=== PATIENT | male | born 1980 | race Two or more races ===

== ENCOUNTER 2022-07-17 23:03 | Inpatient (IN) | payer MEDICAID ==
[~2022-07-17] VITALS: Ht 157.5 cm; Wt 107.5 kg
--- NOTE | 2022-07-17 23:25 | NUR ---
[id number]. BILATERAL LEG PAIN & SWELLING X YESTERDAY PAIN IS MORE ON RIGHT. PT PRESENTS WITH ASCITES. AXO3 PRIMARILY CUBAN SPEAKING, UNDERSTANDS LITTLE FRENCH.
--- NOTE | 2022-07-17 23:39 | NUR ---
IRVIN TAYLOR AT BEDSIDE
[2022-07-18] VITALS (9 sets, daily range): BP systolic 98–130; BP diastolic 47–70
[2022-07-18] MEDS ORDERED: KETOROLAC TROMETHAMINE INJ 30 MG/ML VIAL IV ONE
--- NOTE | 2022-07-18 00:05 | NUR ---
IV STARTED 20G R AC
[2022-07-18] MEDS ORDERED: KETOROLAC TROMETHAMINE 15 MG/ML VIAL ONE (00:06)
--- NOTE | 2022-07-18 00:22 | NUR ---
X-RAY AT BEDSIDE
[2022-07-18 00:35] LABS: BASOPHILS % (AUTO) 0.9 % (0.0-2.0); EOSINOPHILS % (AUTO) 0.1 % (0.0-6.0); HEMATOCRIT 26 % (39-51); HEMOGLOBIN 8.2 g/dL (13.5-17.5); LYMPHOCYTES # (AUTO) 0.3 K/uL (0.8-4.8); LYMPHOCYTES % (AUTO) 5.2 % (20.0-44.0); MEAN CORPUSCULAR HGB CONC 32 g/dl (31.0-36.0); MEAN CORPUSCULAR VOLUME 87 fL (80-96); MONOCYTES # (AUTO) 0.5 K/uL (0.1-1.30); MONOCYTES % (AUTO) 9.3 % (2.0-12.0); NEUTROPHILS # (AUTO) 4.4 K/uL (1.8-8.9); NEUTROPHILS % (AUTO) 84.5 % (43.0-81.0); RED BLOOD CELL COUNT(AUTO) 2.96 MIL/uL (4.5-6.0); WHITE BLOOD COUNT (AUTO) 5.2 K/uL (4.3-11.0)
[2022-07-18 00:36] LABS: PLATELET COUNT (AUTO) 19 K/uL (150-450)
--- NOTE | 2022-07-18 00:37 | NUR ---
RECEIVED CRITICAL RESULT FOR PT PLATELET 19. MADE AWARE
--- NOTE | 2022-07-18 00:45 | NUR ---
COVID ANTIGEN COLLECTED AND SENT TO LAB
[2022-07-18 00:51] LABS: SERUM AMMONIA 64 umol/L (11-32)
[2022-07-18 00:58] LABS: ALANINE AMINOTRANSFERASE 33 U/L (12-78); ALBUMIN 1.9 g/dL (3.4-5.0); ALKALINE PHOSPHATASE 166 U/L (46-116); ASPARTATE AMINOTRANSFERASE 98 U/L (15-37); BILIRUBIN,DIRECT 6.6 mg/dL (0.0-0.2); BILIRUBIN,TOTAL 11.5 mg/dL (0.2-1.0); CALCIUM, SERUM 7.5 mg/dL (8.5-10.1); CARBON DIOXIDE 22 mmol/L (21-32); CHLORIDE 104 mmol/L (98-107); CREATININE 0.6 mg/dL (0.6-1.3); GLUCOSE 103 mg/dL (74-106); POTASSIUM 3.6 mmol/L (3.5-5.1); SODIUM SERUM 136 mmol/L (136-145); TOTAL PROTEIN, SERUM 7.4 g/dL (6.4-8.2); UREA NITROGEN, BLOOD 3 mg/dL (7-18)
[2022-07-18 01:01] LABS: ALCOHOL, BLOOD 4 mg/dL (0-0)
--- NOTE | 2022-07-18 01:35 | NUR ---
Mary Kay mancera in [facility] - 07/18/22 at 0140 by LANCE [phone]
[2022-07-18] MEDS ORDERED: LORAZEPAM INJ 2 MG/ML VIAL IV ONE (02:00)
[2022-07-18] MEDS ORDERED: Z GUARD REMEDY 4 OZ OINT TP PRN (02:30)
[2022-07-18] MEDS ORDERED: LORAZEPAM INJ 2 MG/ML VIAL IV PRN (02:30)
[2022-07-18] MEDS ORDERED: ONDANSETRON HCL/PF 4 MG/2 ML VIAL IVP PRN (02:30)
[2022-07-18] MEDS ORDERED: ZOLPIDEM TARTRATE 5 MG TABLET PO PRN (02:30)
[2022-07-18] MEDS ORDERED: MAG HYDROX/AL HYDROX/SIMETH 30 ML UDC PO PRN (02:30)
[2022-07-18] MEDS ORDERED: MAGNESIUM HYDROXIDE 30 ML UDC PO PRN (02:30)
--- NOTE | 2022-07-18 03:37 | NUR ---
REPORT GIVEN TO STANLEY VALENCIA ON MS 3W
--- NOTE | 2022-07-18 03:42 | NUR ---
PT TRANSPORTED TO [facility]
--- NOTE | 2022-07-18 04:15 | NUR ---
UMBRELLA FINISHER NOTE ADMITTED THIS PATIENT FROM ER [facility] WITH DX OF THROMBOCYTOPENIA AND ALCOHOL WITHDRAWAL. PATIENT IS AWAKE, ALERT AND ORIENTED X3. BRITISH SPEAKING UNDERSTAND SOME HUNGARIAN. ORIENTED TO STAFF, ROOM AND UNIT. VS TAKEN; AFEBRILE. ON ROOM AIR; TOLERATING WELL. NOT IN ANY FORM OF RESPIRATORY OR CARDIAC DISTRESS NOTED AT THIS TIME. NO C/O PAIN OR DISCOMFORT. WITH IV ACCESS ON RIGHT AC 20g; PATENT, INTACT AND SALINE LOCKED. BODY AND SKIN ASSESSMENT DONE. WITH LEFT ARM ECCHYMOSIS AND BILATERAL LOWER EXTREMITY PETECHIAE. PICTURES TAKEN AND PLACED TO CHART. INVENTORY OF PERSONAL BELONGINGS DONE. ABLE TO MAKE NEEDS KNOWN. SAFETY PRECAUTIONS IMPLEMENTED: CALL LIGHT AND TABLE WITHIN REACH, SIDE RAILS UP X 2, BED IN LOWEST LOCKED POSITION. WILL CONTINUE TO MONITOR THROUGHOUT SHIFT.
--- NOTE | 2022-07-18 04:27 | NUR ---
RN NOTE CALLED BLOOD BANK TO FOLLOW UP PLATELET. PER LEEROY WHITMAN, BLOOD BANK DON'T STORE PLATELET. IT NEEDS TO BE ORDERED FROM [facility] AND WILL TAKE 4-6 HRS TO BE DELIVERED TO THE BLOOD BANK. HOSPITALIST CHRIS IRVIN MADE AWARE AND REPLIED OK.
[2022-07-18] MEDS: LACTULOSE 10 G/15 ML UDC (PYXIS) PO SCH ×3 (06:14→20:03)
--- NOTE | 2022-07-18 07:10 | NUR ---
RN CLOSING NOTE PATIENT IN BED; AWAKE, A/O X3. STABLE ON ROOM AIR. IN NO ACUTE DISTRESS. NO C/O PAIN OR DISCOMFORT. WITH IV ACCESS ON RIGHT AC 20g; PATENT, INTACT AND SALINE LOCKED. ALL NEEDS ATTENDED. SAFETY PRECAUTIONS IN PLACE: CALL LIGHT AND TABLE WITHIN REACH, SIDE RAILS UP X 2, BED IN LOWEST LOCKED POSITION. ENDORSED TO MORNING SHIFT FOR CATERINA.
[2022-07-18 07:40] LABS: BASOPHILS # (AUTO) 0.1 K/uL (0.0-0.2); BASOPHILS % (AUTO) 0.9 % (0.0-2.0); EOSINOPHILS % (AUTO) 0.1 % (0.0-6.0); HEMATOCRIT 24 % (39-51); HEMOGLOBIN 7.5 g/dL (13.5-17.5); LYMPHOCYTES # (AUTO) 0.6 K/uL (0.8-4.8); LYMPHOCYTES % (AUTO) 10.7 % (20.0-44.0); MEAN CORPUSCULAR HGB CONC 32 g/dl (31.0-36.0); MEAN CORPUSCULAR VOLUME 88 fL (80-96); MONOCYTES # (AUTO) 0.7 K/uL (0.1-1.30); MONOCYTES % (AUTO) 11.4 % (2.0-12.0); NEUTROPHILS # (AUTO) 4.4 K/uL (1.8-8.9); NEUTROPHILS % (AUTO) 76.9 % (43.0-81.0); RED BLOOD CELL COUNT(AUTO) 2.67 MIL/uL (4.5-6.0); WHITE BLOOD COUNT (AUTO) 5.8 K/uL (4.3-11.0)
[2022-07-18 07:46] LABS: PLATELET COUNT (AUTO) 26 K/uL (150-450)
--- NOTE | 2022-07-18 08:00 | NUR ---
RN OPENING NOTE RECEIVED PATIENT IN BED AO x 3 INDONESIAN SPEAKING, ABLE TO RESPONDS PHYSICAL STIMULI. RESPIRATORY EVEN AND UNLABORED IN ROOM AIR. IN NO ACUTE RESPIRATORY DISTRESS OBSERVED. SKIN IS WARM TO TOUCH, KEEP CLEAN/DRY. KEPT ELEVATED HOB FOR ASPIRATION PRECAUTION AND FOR ENSURE AIRWAY, ALSO LOWEST BED POSITIONED. BED ALARM IS ON AT ALL THE TIME FOR SAFETY. CALL LIGHT WITHIN REACH, WILL CONTINUE TO MONITOR. NOTICED PLT LEVEL IS 26 THIS MORNING REPORTED BY LEEROY FROM LAB. THE PLT HAS BEEN ORDERED PREVIOUSLY AND A WAITING A PLT IS READY FROM THE BLOOD BANK.
[2022-07-18] MEDS: THIAMINE HCL 100 MG TABLET PO SCH (09:06)
[2022-07-18] MEDS: FOLIC ACID 1 MG TABLET PO SCH (09:06)
[2022-07-18] MEDS: PANTOPRAZOLE 40 MG VIAL IV SCH (09:06)
[2022-07-18 09:37] LABS: ALBUMIN 1.7 g/dL (3.4-5.0); BILIRUBIN,TOTAL 11.8 mg/dL (0.2-1.0); CALCIUM, SERUM 7.4 mg/dL (8.5-10.1); CREATININE 0.6 mg/dL (0.6-1.3); MAGNESIUM 1.6 mg/dL (1.8-2.4); PHOSPHORUS 2.5 mg/dL (2.5-4.9); POTASSIUM 3.7 mmol/L (3.5-5.1); TOTAL PROTEIN, SERUM 6.8 g/dL (6.4-8.2)
--- NOTE | 2022-07-18 18:00 | NUR ---
RN CLOSING NOTE PATIENT RESTING IN BED. IN NO ACUTE DISTRESS OBSERVED. S/P PLT TRANSFUSION AND NO REACTION; FEVER, SKIN RASH OBSERVED. RESPIRATORY EVEN AND UNLABORED IN ROOM AIR. SKIN IS WARM TO TOUCH KEEP CLEAN/DRY. KEPT ELEVATED HOB FOR ENSURE AIRWAY/ASPIRATION PRECAUTION, AND LOWEST BED POSITION. NO ALCOHOL WITHDRAW SYMPTOM OBSERVED DURING DAY SHIFT. PATIENT REFUSED WOUND CHECK. BED ALARM IS ON AT ALL THE TIME FOR SAFETY. CALL LIGHT WITHIN REACH, WILL ENDORSE JUMP IRON MACHINE PRESSER.
--- NOTE | 2022-07-18 19:30 | NUR ---
MS RN OPENING NOTES - RECEIVED PATIENT SLEEPING, EASY TO AROUSE. A/O X3, BOTSWANAN SPEAKING BUT UNDERSTANDS ARMENIAN. BREATHING EVEN AND NON-LABORED ON ROOM AIR. NOT IN APPARENT DISTRESS. C/O MILD RIGHT LOWER EXTREMITY PAIN. HAS RIGHT ANTECUBITAL IV ACCESS #20G WITH NS RUNNING AT 150 ML/HR, FINISHING UP HIS PLATELET TRANSFUSION. NO S/S OF INFILTRATION NOTED. ON BED REST AND NEEDS MINIMAL ASSIST WITH ADLS. SAFETY PRECAUTIONS IN PLACE: BED LOCKED AND IN LOWEST POSITION, SIDE RAILS UP X2, CALL LIGHT WITHIN REACH. WILL CONTINUE PLAN OF CARE.
[2022-07-18] MEDS: ACETAMINOPHEN 325 MG TABLET PO PRN (19:58)
--- NOTE | 2022-07-18 20:00 | NUR ---
GAVE PRN TYLENOL 650MG FOR RIGHT THIGH PAIN. WILL CONTINUE TO MONITOR.
[2022-07-18] MEDS: CEPHALEXIN MONOHYDRATE 500 MG CAPSULE PO SCH (20:04)
[2022-07-19] VITALS (9 sets, daily range): BP systolic 107–136; BP diastolic 55–75
[2022-07-19 01:16] LABS: BAND % (MANUAL) 2 % (0.0-5.0); LYMPHOCYTES % (MANUAL) 6 % (16-48); MONOCYTES % (MANUAL) 9 % (0-11.0); NEUTROPHILS % (MANUAL) 81 (42-76)
[2022-07-19 01:17] LABS: EOSINOPHILS % (MANUAL) 2 % (0-4)
[2022-07-19 01:18] LABS: BAND % (MANUAL) 6 % (0.0-5.0); BASOPHILS % (MANUAL) 0 % (0.0-2.0); EOSINOPHILS % (MANUAL) 2 % (0-4); LYMPHOCYTES % (MANUAL) 9 % (16-48); MONOCYTES % (MANUAL) 12 % (0-11.0); NEUTROPHILS % (MANUAL) 71 (42-76)
[2022-07-19] MEDS: LACTULOSE 10 G/15 ML UDC (PYXIS) PO SCH ×3 (05:09→20:27)
[2022-07-19 06:35] LABS: BASOPHILS # (AUTO) 0.1 K/uL (0.0-0.2); BASOPHILS % (AUTO) 1.1 % (0.0-2.0); EOSINOPHILS % (AUTO) 2.2 % (0.0-6.0); HEMATOCRIT 21 % (39-51); LYMPHOCYTES # (AUTO) 0.9 K/uL (0.8-4.8); LYMPHOCYTES % (AUTO) 16.2 % (20.0-44.0); MEAN CORPUSCULAR HGB CONC 32 g/dl (31.0-36.0); MEAN CORPUSCULAR VOLUME 90 fL (80-96); MONOCYTES # (AUTO) 0.9 K/uL (0.1-1.30); NEUTROPHILS # (AUTO) 3.8 K/uL (1.8-8.9); NEUTROPHILS % (AUTO) 65.5 % (43.0-81.0); RED BLOOD CELL COUNT(AUTO) 2.33 MIL/uL (4.5-6.0); WHITE BLOOD COUNT (AUTO) 5.9 K/uL (4.3-11.0)
[2022-07-19 06:40] LABS: ALBUMIN 1.6 g/dL (3.4-5.0); BILIRUBIN,DIRECT 6.7 mg/dL (0.0-0.2); CALCIUM, SERUM 7.4 mg/dL (8.5-10.1); CREATININE 0.7 mg/dL (0.6-1.3); MAGNESIUM 1.8 mg/dL (1.8-2.4); PHOSPHORUS 2.5 mg/dL (2.5-4.9); POTASSIUM 3.4 mmol/L (3.5-5.1); TOTAL PROTEIN, SERUM 6.2 g/dL (6.4-8.2)
[2022-07-19 06:42] LABS: HEMOGLOBIN 6.6 g/dL (13.5-17.5); PLATELET COUNT (AUTO) 45 K/uL (150-450)
--- NOTE | 2022-07-19 06:45 | NUR ---
RECEIVED CALL FROM LAB: CRITICAL VALUE HGB 6.6 AND PLATELET 45. NOTIFIED HOSPITALIST AND ORDERED TO INFUSE 1 UNIT PRBC. NOTED AND CARRIED OUT.
--- NOTE | 2022-07-19 06:57 | NUR ---
MS RN CLOSING NOTES - PATIENT RESTING IN BED, ABLE TO VERBALIZE NEEDS. NO CARDIAC OR RESPIRATORY DISTRESS. DENIES PAIN AT THIS TIME. AFEBRILE. NO ACTIVE BLEEDING NOTED. RIGHT ANTECUBITAL IV ACCESS INTACT, PATENT AND FLUSHING. NON-PITTING EDEMA ON BILATERAL LOWER EXTREMITY NOTED. ALL DUE MEDS GIVEN AND NEEDS ATTENDED. PAIN MANAGEMENT ORDERED. PERINEAL CARE RENDERED. SAFETY PRECAUTIONS MAINTAINED. WILL ENDORSE TO NEXT SHIFT FOR CATERINA.
--- NOTE | 2022-07-19 07:46 | NUR ---
N OPENING NOTE THE PATIENT RECIEVED IN BED AO x 3 CZECH SPEAKING, ABLE TO RESPONDS PHYSICAL STIMULI. RESPIRATORY EVEN AND UNLABORED IN ROOM AIR. IN NO ACUTE RESPIRATORY DISTRESS OBSERVED. SKIN IS WARM TO TOUCH, KEEP CLEAN/DRY. KEPT ELEVATED HOB FOR ASPIRATION PRECAUTION AND FOR ENSURE AIRWAY, ALSO LOWEST BED POSITIONED. BED ALARM IS ON AT ALL THE TIME FOR SAFETY. CALL LIGHT WITHIN REACH, WILL CONTINUE TO MONITOR.
[2022-07-19] MEDS ORDERED: POTASSIUM CHLORIDE 20 MEQ TAB.PRT.SR PO SCH (09:00)
[2022-07-19] MEDS: CEPHALEXIN MONOHYDRATE 500 MG CAPSULE PO SCH ×2 (09:14→20:27)
[2022-07-19] MEDS: THIAMINE HCL 100 MG TABLET PO SCH (09:14)
[2022-07-19] MEDS: PANTOPRAZOLE 40 MG VIAL IV SCH (09:14)
[2022-07-19] MEDS: FOLIC ACID 1 MG TABLET PO SCH (09:14)
[2022-07-19 09:46] LABS: BAND % (MANUAL) 5 % (0.0-5.0); BASOPHILS % (MANUAL) 0 % (0.0-2.0); EOSINOPHILS % (MANUAL) 2 % (0-4); LYMPHOCYTES % (MANUAL) 18 % (16-48); MONOCYTES % (MANUAL) 11 % (0-11.0); NEUTROPHILS % (MANUAL) 64 (42-76)
[2022-07-19] MEDS ORDERED: PHYTONADIONE INJ 10 MG/1 ML AMPUL SQ ONE (15:00)
[2022-07-19 16:52] LABS: C-REACTIVE PROTEIN 1.1 mg/dL (0.0-0.9); THYROID STIMULATING HORMONE 2.167 uIU/mL (0.358-3.74)
--- NOTE | 2022-07-19 18:00 | NUR ---
RN CLOSING NOTE PATIENT RESTING IN BED. IN NO ACUTE DISTRESS OBSERVED. S/P RBC X 1UNIT TRANSFUSION AND NO REACTION; FEVER, SKIN RASH OBSERVED. RESPIRATORY EVEN AND UNLABORED IN ROOM AIR. SKIN IS WARM TO TOUCH KEEP CLEAN/DRY. KEPT ELEVATED HOB FOR ENSURE AIRWAY/ASPIRATION PRECAUTION, AND LOWEST BED POSITION. NO ALCOHOL WITHDRAW SYMPTOM OBSERVED DURING DAY SHIFT. PATIENT REFUSED WOUND CHECK. BED ALARM IS ON AT ALL THE TIME FOR SAFETY. CALL LIGHT WITHIN REACH, WILL ENDORSE U.S. COMMISSIONER. PATIENT NOTICED FIBRINOGEN 86 CH, SOCIAL ECONOMIST/JODY MADE AWARE, PLACED NEW ORDER; TRANSFUSE CRYOPRECIPITATE 10UNITS.
--- NOTE | 2022-07-19 19:30 | NUR ---
MS RN OPENING NOTES - RECEIVED PATIENT SLEEPING, EASY TO AROUSE. A/O X4, JAPANESE SPEAKING. BREATHING EVEN AND NON-LABORED ON ROOM AIR. NOT IN APPARENT DISTRESS. C/O MILD CRAMPING RIGHT THIGH PAIN. HAS RIGHT ANTECUBITAL IV ACCESS #20G, REDDENED AND LEAKING. HAS RIGHT HAND IV ACCESS #22G AND SALINE LOCKED. NO S/S OF INFILTRATION NOTED. HAD 1 BM THIS MORNING. SAFETY PRECAUTIONS IN PLACE: BED LOCKED AND IN LOWEST POSITION, SIDE RAILS UP X2, CALL LIGHT WITHIN REACH. WILL CONTINUE PLAN OF CARE.
[2022-07-19] MEDS: ACETAMINOPHEN 325 MG TABLET PO PRN (19:51)
--- NOTE | 2022-07-19 19:52 | NUR ---
PRN TYLENOL 650 MG GIVEN TO MANAGE MILD RIGHT THIGH PAIN. PATIENT DESCRIBED IT CRAMPING.
[2022-07-19 20:08] LABS: OCCULT BLOOD STOOL NEGATIVE (NEGATIVE)
--- NOTE | 2022-07-19 22:18 | NUR ---
SPOKE WITH STANLEY FROM BLOOD BANK FOLLOWING UP ON THE CRYOPRECIPITATE ORDER. SHE SAID NO ONE HAS CALLED HER. I TOLD HER THAT ANOOP ENDORSED TO ME THAT SHE SPOKE WITH HER AROUND 1800 AND ENTERED THE ORDER WELL. SHE SAID I WILL NEED TO CALLBACK IN 20 MINUTES FOR THE NEXT SHIFT SINCE SHE IS LEAVING ALREADY. Addendum: 07/19/22 at 2248 by September JORDY VALENCIA SPOKE WITH LEEROY FROM BLOOD BANK, HE WILL THAW THE CRYO AND WILL BE READY IN AN HOUR.
[2022-07-20] VITALS (8 sets, daily range): BP systolic 110–137; BP diastolic 54–79
--- NOTE | 2022-07-20 02:45 | NUR ---
TRANSFUSED 10 UNITS CRYOPRECIPITATE, PATIENT'S VS WNL. NO ASE NOTED.
[2022-07-20] MEDS: LACTULOSE 10 G/15 ML UDC (PYXIS) PO SCH ×3 (05:38→21:07)
[2022-07-20 06:32] LABS: BASOPHILS % (AUTO) 0.9 % (0.0-2.0); HEMATOCRIT 24 % (39-51); HEMOGLOBIN 7.5 g/dL (13.5-17.5); LYMPHOCYTES # (AUTO) 0.9 K/uL (0.8-4.8); MEAN CORPUSCULAR HGB CONC 32 g/dl (31.0-36.0); MEAN CORPUSCULAR VOLUME 90 fL (80-96); MONOCYTES # (AUTO) 0.7 K/uL (0.1-1.30); MONOCYTES % (AUTO) 14.1 % (2.0-12.0); NEUTROPHILS # (AUTO) 3.4 K/uL (1.8-8.9); RED BLOOD CELL COUNT(AUTO) 2.63 MIL/uL (4.5-6.0); WHITE BLOOD COUNT (AUTO) 5.2 K/uL (4.3-11.0)
--- NOTE | 2022-07-20 06:34 | NUR ---
MS RN CLOSING NOTES - PATIENT RESTING IN BED, ABLE TO VERBALIZE NEEDS. NO SOB OR NOTED. NO ACUTE DISTRESS THROUGHOUT THE NIGHT. AFEBRILE. NO C/O PAIN AT THIS TIME. NO ACTIVE BLEEDING. RIGHT HAND IV ACCESS INTACT, PATENT AND FLUSHING. PERINEAL CARE RENDERED. ALL DUE MEDS GIVEN AND NEEDS ATTENDED. SAFETY PRECAUTIONS MAINTAINED. WILL ENDORSE TO NEXT SHIFT FOR CATERINA.
[2022-07-20 06:44] LABS: CALCIUM, SERUM 7.5 mg/dL (8.5-10.1); CREATININE 0.6 mg/dL (0.6-1.3); MAGNESIUM 1.8 mg/dL (1.8-2.4); PHOSPHORUS 2.6 mg/dL (2.5-4.9); POTASSIUM 3.7 mmol/L (3.5-5.1)
[2022-07-20 06:49] LABS: ALBUMIN 1.6 g/dL (3.4-5.0); BILIRUBIN,DIRECT 6.4 mg/dL (0.0-0.2); BILIRUBIN,TOTAL 11.3 mg/dL (0.2-1.0); TOTAL PROTEIN, SERUM 6.3 g/dL (6.4-8.2)
[2022-07-20 06:59] LABS: PLATELET COUNT (AUTO) 44 K/uL (150-450)
--- NOTE | 2022-07-20 07:45 | NUR ---
RN OPENING NOTES-PATIENT RESTING IN BED, NO SOB. NO ACUTE DISTRESS. AFEBRILE. DENIES PAIN THOUGH RLE IS UNCOMFORTABLE AT TIMES. US NEG FOR DVT, XR NEG, RIGHT HAND IV ACCESS INTACT, PATENT AND FLUSHING. SAFETY PRECAUTIONS MAINTAINED. MONITOR / ASSIST
[2022-07-20] MEDS: CEPHALEXIN MONOHYDRATE 500 MG CAPSULE PO SCH ×2 (09:09→21:07)
[2022-07-20] MEDS: FOLIC ACID 1 MG TABLET PO SCH (09:09)
[2022-07-20] MEDS: THIAMINE HCL 100 MG TABLET PO SCH (09:09)
[2022-07-20] MEDS: PANTOPRAZOLE 40 MG VIAL IV SCH (09:09)
[2022-07-20 11:07] LABS: IMMUNOGLOBULIN A, SERUM 999 mg/dL (90-386); IMMUNOGLOBULIN G, SERUM 2708 mg/dL (603-1613); IMMUNOGLOBULIN M, SERUM 239 mg/dL (20-172)
[2022-07-20] MEDS: SOD FERRIC GLUC 125 MG in IV NS 0.9% 100 ML IV SCH (16:53)
--- NOTE | 2022-07-20 18:22 | NUR ---
RN CLOSING NOTE- PT FIBRINOGEN 95. CRYO ORDERED TO BE GIVEN. AWAITING BLOOD BANK, PATIENT IN BED, NO SOB. NO ACUTE DISTRESS. AFEBRILE. DENIES PAIN,RIGHT HAND IV ACCESS INTACT, PATENT AND FLUSHING. SAFETY PRECAUTIONS MAINTAINED. MONITOR / ASSIST
--- NOTE | 2022-07-20 19:50 | NUR ---
MS RN OPENING NOTE RECEIVED PATIENT AWAKE, AND RESTING IN BED, TALKING TO AT BED SIDE. PT A/O X4, KOREAN SPEAKING. BREATHING EVEN AND NON-LABORED, ON ROOM AIR. NO RESPIRATORY DISTRESS NOTED. NO C/O PAIN AT THIS TIME. HAS RIGHT HAND IV ACCESS #22G, IV INTACT, AND PATENT. NO S/S OF INFILTRATION NOTED. SAFETY PRECAUTIONS IN PLACE: BED LOCKED, AND IN LOWEST POSITION, SIDE RAILS UP X2, CALL LIGHT WITHIN REACH. WILL CONTINUE TO MONITOR PT.
[2022-07-21] VITALS (9 sets, daily range): BP systolic 108–145; BP diastolic 55–77
[2022-07-21] MEDS: LACTULOSE 10 G/15 ML UDC (PYXIS) PO SCH ×3 (05:41→20:07)
[2022-07-21 06:14] LABS: BASOPHILS # (AUTO) 0.1 K/uL (0.0-0.2); BASOPHILS % (AUTO) 1.1 % (0.0-2.0); HEMATOCRIT 24 % (39-51); HEMOGLOBIN 7.7 g/dL (13.5-17.5); LYMPHOCYTES # (AUTO) 0.8 K/uL (0.8-4.8); LYMPHOCYTES % (AUTO) 16.6 % (20.0-44.0); MEAN CORPUSCULAR HGB CONC 32 g/dl (31.0-36.0); MEAN CORPUSCULAR VOLUME 90 fL (80-96); MONOCYTES # (AUTO) 0.8 K/uL (0.1-1.30); MONOCYTES % (AUTO) 17.7 % (2.0-12.0); NEUTROPHILS # (AUTO) 2.9 K/uL (1.8-8.9); NEUTROPHILS % (AUTO) 61.6 % (43.0-81.0); RED BLOOD CELL COUNT(AUTO) 2.66 MIL/uL (4.5-6.0); WHITE BLOOD COUNT (AUTO) 4.8 K/uL (4.3-11.0)
[2022-07-21 06:31] LABS: CALCIUM, SERUM 7.3 mg/dL (8.5-10.1); CREATININE 0.6 mg/dL (0.6-1.3); MAGNESIUM 1.8 mg/dL (1.8-2.4); PHOSPHORUS 2.5 mg/dL (2.5-4.9); POTASSIUM 3.5 mmol/L (3.5-5.1)
[2022-07-21 06:35] LABS: PLATELET COUNT (AUTO) 41 K/uL (150-450)
[2022-07-21 06:40] LABS: D-DIMER 17.44 mg/L(FEU (0.17-0.50)
--- NOTE | 2022-07-21 06:50 | NUR ---
MS RN CLOSING NOTE LEFT PATIENT AWAKE, AND RESTING IN BED, PT A/O X4, JORDANIAN SPEAKING. BREATHING EVEN AND NON-LABORED, ON ROOM AIR. NO RESPIRATORY DISTRESS NOTED. NO C/O PAIN AT THIS TIME. HAS RIGHT HAND IV ACCESS #22G, IV INTACT, AND PATENT. NO S/S OF INFILTRATION NOTED. SAFETY PRECAUTIONS IN PLACE: BED LOCKED, AND IN LOWEST POSITION, SIDE RAILS UP X2, CALL LIGHT WITHIN REACH. WILL ENDORSE PT TO NEXT SHIFT FOR CATERINA.
--- NOTE | 2022-07-21 07:00 | NUR ---
MS RN NOTE AWAITING FOR LAB TO CALL REGARDING PT'S CRYOPRECIPITATE. LAB WAS CALLED TWICE. LAB SAID THAT ORDER FOR TYPE AND SCREEN, AND FOR 10 U OF TRANSFUSION OF CRYOPRECIPITATE HAS . NEW ORDERED RECEIVED, AND ENTERED. WILL ENDORSE TO NURSE CHENG.
--- NOTE | 2022-07-21 07:20 | NUR ---
MS RN OPENING NOTE RECEIVED PATIENT AWAKE, AND RESTING IN BED, PT A/O X4, FINNISH SPEAKING. BREATHING EVEN AND NON-LABORED, ON ROOM AIR. NO RESPIRATORY DISTRESS NOTED. NO C/O PAIN AT THIS TIME. HAS RIGHT HAND IV ACCESS #22G, IV INTACT, AND PATENT. NO S/S OF INFILTRATION NOTED. SAFETY PRECAUTIONS IN PLACE: BED LOCKED, AND IN LOWEST POSITION, SIDE RAILS UP X2, CALL LIGHT WITHIN REACH. WILL CONTINUE TO MONITOR PT.
[2022-07-21] MEDS: CEPHALEXIN MONOHYDRATE 500 MG CAPSULE PO SCH ×2 (08:42→20:04)
[2022-07-21] MEDS: FOLIC ACID 1 MG TABLET PO SCH (08:42)
[2022-07-21] MEDS: THIAMINE HCL 100 MG TABLET PO SCH (08:42)
[2022-07-21] MEDS: PANTOPRAZOLE 40 MG TABLET.DR PO SCH (08:43)
[2022-07-21 12:07] LABS: *SPE A/G RATIO 0.5 (0.7-1.7); *SPE ALPHA-1-GLOBULIN 0.2 g/dL (0.0-0.4); *SPE ALPHA-2-GLOBULIN 0.3 g/dL (0.4-1.0); *SPE BETA GLOBULIN 0.9 g/dL (0.7-1.3); *SPE M-SPIKE Not Observed g/dL (Not Observed)
[2022-07-21] MEDS: SOD FERRIC GLUC 125 MG in IV NS 0.9% 100 ML IV SCH (14:53)
[2022-07-21 15:52] LABS: LYMPHOCYTES % (MANUAL) 17 % (16-48); MONOCYTES % (MANUAL) 7 % (0-11.0); NEUTROPHILS % (MANUAL) 76 (42-76)
--- NOTE | 2022-07-21 18:46 | NUR ---
MS RN CLOSING NOTE PATIENT AWAKE, AND RESTING IN BED, PT A/O X4, LEBANESE SPEAKING. BREATHING EVEN AND NON-LABORED, ON ROOM AIR. NO RESPIRATORY DISTRESS NOTED. NO C/O PAIN AT THIS TIME. HAS RIGHT HAND IV ACCESS #22G, IV INTACT, AND PATENT. NO S/S OF INFILTRATION NOTED. SAFETY PRECAUTIONS IN PLACE: BED LOCKED, AND IN LOWEST POSITION, SIDE RAILS UP X2, CALL LIGHT WITHIN REACH. WILL ENDORSE PT TO BALLET PROFESSOR FOR CATERINA.
--- NOTE | 2022-07-21 19:30 | NUR ---
MS RN OPENING NOTE RECEIVED PATIENT FROM AM NURSE; PATIENT AWAKE IN BED, A/O X4, POLISH SPEAKING BUT CAN UNDERSTAND LITTLE BENGALI; STABLE ON ROOM AIR TOLERATING WELL, BREATHING EVENLY AND NO S/S OF DISTRESS NOTED; WITH IV ACCESS ON RIGHT HAND G#22, INTACT AND PATENT; NO COMPLAINS OF PAIN AND DISCOMFORT AT THIS TIME; ENCOURAGED VERBALIZATION OF NEEDS; SAFETY PRECAUTIONS IN PLACE: BED LOCKED AND IN LOWEST POSITION, SIDE RAILS UP X2 , CALL LIGHT AND TABLE WITHIN REACH; WILL CONTINUE TO MONITOR THROUGHOUT SHIFT
[2022-07-22] MEDS: LACTULOSE 10 G/15 ML UDC (PYXIS) PO SCH ×3 (04:38→22:32)
[2022-07-22 06:10] LABS: BASOPHILS # (AUTO) 0.1 K/uL (0.0-0.2); BASOPHILS % (AUTO) 1.2 % (0.0-2.0); EOSINOPHILS % (AUTO) 2.2 % (0.0-6.0); HEMATOCRIT 25 % (39-51); LYMPHOCYTES # (AUTO) 0.8 K/uL (0.8-4.8); LYMPHOCYTES % (AUTO) 16.5 % (20.0-44.0); MEAN CORPUSCULAR HGB CONC 32 g/dl (31.0-36.0); MEAN CORPUSCULAR VOLUME 92 fL (80-96); MONOCYTES # (AUTO) 1.1 K/uL (0.1-1.30); MONOCYTES % (AUTO) 21.4 % (2.0-12.0); NEUTROPHILS % (AUTO) 58.7 % (43.0-81.0); RED BLOOD CELL COUNT(AUTO) 2.75 MIL/uL (4.5-6.0); WHITE BLOOD COUNT (AUTO) 5.1 K/uL (4.3-11.0)
[2022-07-22 06:16] LABS: PLATELET COUNT (AUTO) 41 K/uL (150-450)
--- NOTE | 2022-07-22 06:20 | NUR ---
MS RN NOTE LAB CALLED AND INFORMED THAT PLATELET OF PATIENT WAS 41. DR HICKMAN MADE AWARE AND NO NEW ORDERS WERE MADE AT THIS TIME; WILL CONTINUE TO MONITOR
[2022-07-22 06:44] LABS: POTASSIUM 3.7 mmol/L (3.5-5.1)
[2022-07-22 07:00] VITALS: BP 112/60
--- NOTE | 2022-07-22 07:01 | NUR ---
MS RN CLOSING NOTE PATIENT ASLEEP IN BED, A/O X4, YAKUT SPEAKING BUT CAN UNDERSTAND LITTLE NEPALI; STABLE ON ROOM AIR TOLERATING WELL, BREATHING EVENLY AND NO S/S OF DISTRESS NOTED; WITH IV ACCESS ON RIGHT HAND G#22, INTACT AND PATENT RUNNING WITH NORMAL SALINE X KVO; NO COMPLAINS OF PAIN AND DISCOMFORT AT THIS TIME; ADMINISTERED MEDICATIONS PRESCRIBED; PATIENT'S NEEDS ATTENDED; MONITORED PATIENT ACCORDINGLY; SAFETY PRECAUTIONS IN PLACE: BED LOCKED AND IN LOWEST POSITION, SIDE RAILS UP X2 , CALL LIGHT AND TABLE WITHIN REACH; WILL ENDORSE TO AM NURSE FOR CATERINA.
[2022-07-22 07:08] LABS: D-DIMER 21.56 mg/L(FEU (0.17-0.50)
--- NOTE | 2022-07-22 07:09 | NUR ---
MANAGER DISH OPENING NOTES RECEIVED PATIENT SLEEPING, A/Ox4, IS GERMAN SPEAKING. HE IS ON RA, NO SOB NOTED. IV ACCESS LEFT AC #22G AND RIGHT HAND#22G S/L. INTACT AND PATENT. ON BED REST.USES URINAL SKIN ISSUES LEFT ARM AND ABDOMEN ECCHYMOSIS AND B LEGS RASH AND EDEMA. NO PAIN OR DISCOMFORT NOTED. SAFETY MEASURES IN PLACE: BED IS LOCK IN LOWEST POSITION, SIDE RAILS X2, CALL LIGHT IN REACH AND HOB ELEVATED. WILL CONTINUE TO MONITOR.
[2022-07-22 07:11] LABS: CALCIUM, SERUM 7.6 mg/dL (8.5-10.1); CREATININE 0.5 mg/dL (0.6-1.3); MAGNESIUM 1.9 mg/dL (1.8-2.4); PHOSPHORUS 2.6 mg/dL (2.5-4.9)
[2022-07-22] MEDS: CEPHALEXIN MONOHYDRATE 500 MG CAPSULE PO SCH (08:38)
[2022-07-22] MEDS: PANTOPRAZOLE 40 MG TABLET.DR PO SCH (08:38)
[2022-07-22] MEDS: FOLIC ACID 1 MG TABLET PO SCH (08:38)
[2022-07-22] MEDS: THIAMINE HCL 100 MG TABLET PO SCH (08:39)
[2022-07-22 10:00] LABS: EOSINOPHILS % (MANUAL) 2 % (0-4); LYMPHOCYTES % (MANUAL) 13 % (16-48); MONOCYTES % (MANUAL) 14 % (0-11.0); NEUTROPHILS % (MANUAL) 71 (42-76)
[2022-07-22] MEDS: SOD FERRIC GLUC 125 MG in IV NS 0.9% 100 ML IV SCH (13:56)
[2022-07-22 16:00] VITALS: BP 125/80
[2022-07-22] MEDS ORDERED: diphenhydrAMINE HCL 50 MG/ML VIAL IV ONE (16:30)
[2022-07-22] MEDS ORDERED: ACETAMINOPHEN 325 MG TABLET PO ONE (16:30)
--- NOTE | 2022-07-22 18:56 | NUR ---
WATCH SUPERVISOR CLOSING NOTES PATIENT AWAKE, A/Ox4, IS PERSIAN SPEAKING. STABLE ON RA, NO SOB NOTED. IV ACCESS RIGHT HAND #22G S/L. INTACT AND PATENT. ON BED REST. USES URINAL. SKIN ISSUES LEFT ARM AND ABDOMEN ECCHYMOSIS AND B LEGS RASH AND EDEMA. NO PAIN OR DISCOMFORT NOTED. SAFETY MEASURES MAINTAIN: BED IS LOCK IN LOWEST POSITION, SIDE RAILS X2, CALL LIGHT IN REACH AND HOB ELEVATED. WILL ENDORSE TO NEXT SHIFT ANY CATERINA.
--- NOTE | 2022-07-22 19:00 | NUR ---
RN OPENING NOTE RECEIVED PT ASLEEP IN BED. PT IS A/OX 4, ABLE TO MAKE NEEDS KNOWN. PT IV IS PRESENT ON RIGHT HAND #22G SALINE LOCK, ARM IS SWOLLEN AND WARM TO TOUCH @SITE NOTED. PT IS ON RA TOLERATING WELL, BREATHING AND UNLABORED @ THIS TIME. PT IS ON DIAPER. SAFETY MEASURES IS IN PLACE. BED AT ITS LOWEST AND LOCKED POSITION. SIDE RAILS UP X 2. BEDSIDE TABLE AND CALL LIGHT IS WITHIN REACH. BED ALARM IS ON. WILL CONTINUE TO MONITOR PT ACCORDINGLY.
[2022-07-22 20:00] VITALS: BP 137/67
--- NOTE | 2022-07-22 21:30 | NUR ---
IV ON RIGHT HAND OUT D/T INFILTRATION. INSERTED IV @ RIGHT AC #22g.
--- NOTE | 2022-07-22 21:30 | NUR ---
ELEVATED PT RIGHT HAND.
[2022-07-22] MEDS: ACETAMINOPHEN 325 MG TABLET PO PRN (23:38)
[2022-07-23] MEDS: LACTULOSE 10 G/15 ML UDC (PYXIS) PO SCH ×3 (05:55→20:14)
--- NOTE | 2022-07-23 06:39 | NUR ---
RN CLOSING NOTE PT AWAKE, RESTING COMFORTABLY IN BED. A/O X 4, RESPONSIVE AND FOLLOWS VERBAL COMMAND. PT IS IN RA, W/ NO S&SX RESPIRATORY DISTRESS NOTED @ THIS TIME. PT IV PRESENT ON RIGHT AC #22G, PATENT, INTACT AND FLUSHES WELL W/ NO S & SX OF INFILTRATION. PT DIAPER CHANGE X 2, KEPT CLEAN, DRY AND COMFORTABLE. ADMINISTERED MEDICATION ACCORDINGLY PER MD'S ORDER. SAFETY MEASURES IS IN PLACE. BED AT ITS LOWEST AND LOCKED POSITION. SIDE RAILS UP X 2. BEDSIDE TABLE AND CALL LIGHT IS EASY REACH. BED ALARM IS ON. WILL ENDORSE PT TO THE NEXT SHIFT FOR CONTINUITY OF CARE.
[2022-07-23 07:00] VITALS: BP 142/80
[2022-07-23 07:00] LABS: CALCIUM, SERUM 7.6 mg/dL (8.5-10.1); CREATININE 0.5 mg/dL (0.6-1.3); PHOSPHORUS 2.3 mg/dL (2.5-4.9); POTASSIUM 3.9 mmol/L (3.5-5.1)
[2022-07-23 07:04] LABS: BASOPHILS # (AUTO) 0.1 K/uL (0.0-0.2); BASOPHILS % (AUTO) 0.9 % (0.0-2.0); EOSINOPHILS % (AUTO) 1.1 % (0.0-6.0); HEMATOCRIT 27 % (39-51); HEMOGLOBIN 8.4 g/dL (13.5-17.5); LYMPHOCYTES # (AUTO) 0.8 K/uL (0.8-4.8); MEAN CORPUSCULAR HGB CONC 31 g/dl (31.0-36.0); MEAN CORPUSCULAR VOLUME 93 fL (80-96); MONOCYTES # (AUTO) 1.3 K/uL (0.1-1.30); MONOCYTES % (AUTO) 23.5 % (2.0-12.0); NEUTROPHILS # (AUTO) 3.4 K/uL (1.8-8.9); NEUTROPHILS % (AUTO) 59.5 % (43.0-81.0); RED BLOOD CELL COUNT(AUTO) 2.89 MIL/uL (4.5-6.0); WHITE BLOOD COUNT (AUTO) 5.7 K/uL (4.3-11.0)
[2022-07-23 07:16] LABS: PLATELET COUNT (AUTO) 43 K/uL (150-450)
--- NOTE | 2022-07-23 07:29 | NUR ---
RN OPENING NOTE RECEIVED PT ASLEEP IN BED. EASILY AROUSED TO HIS NAME. PT IS A/OX 4, ABLE TO MAKE NEEDS KNOWN. PT HAS PIV AT RIGHT AC SPACE #22G SALINE LOCKED, ARM IS SWOLLEN AND WARM TO TOUCH @SITE NOTED. PT IS ON RA TOLERATING WELL, BREATHING AND UNLABORED @ THIS TIME. PT IS ON DIAPER. SAFETY MEASURES ARE IN PLACE. BED AT ITS LOWEST AND LOCKED POSITION. SIDE RAILS UP X 2. BEDSIDE TABLE AND CALL LIGHT IS WITHIN REACH. BED ALARM IS ON. LAB REPORTEDCRITICAL PLATELET LEVEL OF 43 FOR THIS AM, HOSPITALIST PROVIDER AWARE AND MONITORING. WILL CONTINUE TO CARE FOR AND MONITOR PATIENT PER HOSPITALIST'S POC.
[2022-07-23] MEDS ORDERED: K PHOS NEUTRAL 250 MG TABLET PO ONE (09:00)
[2022-07-23] MEDS: FOLIC ACID 1 MG TABLET PO SCH (10:06)
[2022-07-23] MEDS: PANTOPRAZOLE 40 MG TABLET.DR PO SCH (10:07)
[2022-07-23] MEDS: THIAMINE HCL 100 MG TABLET PO SCH (10:07)
[2022-07-23 12:52] LABS: BASOPHILS % (MANUAL) 0 % (0.0-2.0); EOSINOPHILS % (MANUAL) 1 % (0-4); LYMPHOCYTES % (MANUAL) 12 % (16-48); MONOCYTES % (MANUAL) 21 % (0-11.0); NEUTROPHILS % (MANUAL) 66 (42-76)
[2022-07-23] MEDS: SOD FERRIC GLUC 125 MG in IV NS 0.9% 100 ML IV SCH (15:10)
[2022-07-23 15:29] LABS: D-DIMER 30.34 mg/L(FEU (0.17-0.50)
[2022-07-23 16:00] VITALS: BP 108/70
--- NOTE | 2022-07-23 19:00 | NUR ---
RN OPENING NOTE RECEIVED PT. AWAKE IN BED. PT IS A/OX4, VIETNAMESE SPEAKING BUT CAN UNDERSTAND SIMPLE INDONESIAN. PT IS IN RA, TOLERATING WELL, BREATHING AND UNLABORED @ THIS TIME. PT IV PRESENT ON RIGHT AC @22G SALINE LOCK, PATENT, INTACT AND FLUSHES WELL W/ BRUISING @ SITE NOTED. SAFETY MEASURES IS IN PLACE. BED PLACED AT ITS LOWEST AND LOCKED POSITION. SIDE RAILS UP X 2. BEDSIDE TABLE AND CALL LIGHT IS EASY REACH. BED ALARM IS ON. WILL CONTINUE TO MONITOR PT ACCORDINGLY.
[2022-07-23 20:36] VITALS: BP 127/70
[2022-07-23 22:37] VITALS: BP 128/70
[2022-07-24] MEDS: LACTULOSE 10 G/15 ML UDC (PYXIS) PO SCH ×2 (04:14→12:29)
[2022-07-24 06:31] LABS: CALCIUM, SERUM 7.5 mg/dL (8.5-10.1); CREATININE 0.5 mg/dL (0.6-1.3); PHOSPHORUS 2.4 mg/dL (2.5-4.9); POTASSIUM 4.2 mmol/L (3.5-5.1)
--- NOTE | 2022-07-24 06:37 | NUR ---
RN CLOSING NOTE PT IS ASLEEP AND RESTING COMFORTABLY IN BED. PT IS A/O X 4, RESPONSIVE AND FOLLOWS VERBAL COMMAND. PT IS IN RA W/ NO S&SX OF RESPIRATORY DISTRESS NOTED @ THIS TIME. PT IV PRESENT ON RIGHT AC #22G , PATENT, INTACT AND FLUSHES WELL WITH NO S &SX OF INFILTRATION. PT DIAPER CHANGE 1X, KEPT CLEAN, DRY AND COMFORTABLE. ADMINISTERED MEDICATION ACCORDINGLY PER MD'S ORDER. VITAL SIGNS TAKEN AND DOCUMENTED. ALL NEEDS ATTENDED. SAFETY MEASURES IS IN PLACE. BED AT ITS LOWEST AND LOCKED POSITION. SIDE RAILS UP X 2. BEDSIDE TABLE AND CALL LIGHT IS EASY REACH. BED ALARM IS ON. WILL ENDORSE TO THE NEXT SHIFT FOR CONTINUITY OF CARE.
[2022-07-24 06:41] LABS: D-DIMER 28.55 mg/L(FEU (0.17-0.50)
--- NOTE | 2022-07-24 07:10 | NUR ---
MS HOME BASED ASSISTANT OPENING NOTE RECEIVED PATIENT AWAKE IN BED, A/Ox4 ABLE TO MAKE NEEDS KNOWN. ON ROOM AIR, NO S/S OF RESPIRATORY DISTRESS. IV ACCESS R AC #22G S/L. INTACT AND PATENT. NO S/S OF INFILTRATION NOTED AT THIS TIME. PATIENT CONTINENT, USES URINAL. ON BEDREST. SKIN ISSUES: L ARM AND ABDOMINAL ECCHYMOSIS AND R LEG RASHES AND EDEMA. SAFETY MEASURES IN PLACE: BED LOCKED AND IN LOWEST POSITION, HOB ELEVATED, SIDE RAILS UPx2, CALL LIGHT WITHIN REACH. WILL CONTINUE TO MONITOR.
[2022-07-24] MEDS ORDERED: CALC-101 PO (07:28)
[2022-07-24] MEDS ORDERED: LACT10SO58 PO (07:28)
[2022-07-24] MEDS ORDERED: PANT40TA49 PO (07:28)
[2022-07-24 08:00] VITALS: BP 126/70
[2022-07-24] MEDS ORDERED: K PHOS NEUTRAL 250 MG TABLET PO ONE ×2 (08:00→10:30)
[2022-07-24] MEDS: THIAMINE HCL 100 MG TABLET PO SCH (08:40)
[2022-07-24] MEDS: PANTOPRAZOLE 40 MG TABLET.DR PO SCH (08:40)
[2022-07-24] MEDS: FOLIC ACID 1 MG TABLET PO SCH (08:40)
[2022-07-24] MEDS ORDERED: NEUTRA PHOS 1 POWD.PACKET PO ONE (10:00)
[2022-07-24] MEDS: SOD FERRIC GLUC 125 MG in IV NS 0.9% 100 ML IV SCH (13:53)
--- NOTE | 2022-07-24 16:55 | NUR ---
THREAD INSPECTOR DISCHARGE NOTE PATIENT D/C HOME A/O X4. STABLE ON ROOM AIR NO S/S OF RESPIRATORY DISTRESS NOTED. IV ACCESS WAS REMOVED PRESSURE DRESSING APPLIED NO BLEEDING NOTED. ID BAND REMOVED. DISCHARGE INSTRUCTIONS AND HEALTH TEACHING EXPLAINED TO PATIENT. VERBALIZED UNDERSTANDING. SKIN ISSUES PHOTOGRAPHED AND FILED IN THE CHART. ALL FORMS SIGNED AND COPIED. PATIENT LEFT UNIT AT 1655 ACCOMPANIED BY TWO MAJOR GIFTS DIRECTOR. CHARGE NURSE AND MD AWARE OF DISCHARGE
== END 2022-07-24 16:55 | disposition home health service (06) | DRG 280 ==
LOC: ER 23:16 → TELE 07-18 03:34 → MED 07-18 10:56
PROVIDERS: ADMIT Student in an Organized Health Care Education/Training Program; ATTEND Nurse Practitioner Acute Care
PROC: 30233R1 Transfusion of Nonautologous Platelets into Peripheral Vein, Percutaneous Approach (ICD-10-PCS; 2022-07-18)
PROC: 30233N1 Transfusion of Nonautologous Red Blood Cells into Peripheral Vein, Percutaneous Approach (ICD-10-PCS; principal; 2022-07-19)
PROC: 30233M1 Transfusion of Nonautologous Plasma Cryoprecipitate into Peripheral Vein, Percutaneous Approach (ICD-10-PCS; 2022-07-19)
DX: K70.30 Alcoholic cirrhosis of liver without ascites (principal); E43 Unspecified severe protein-calorie malnutrition; K76.82 Hepatic encephalopathy; D68.9 Coagulation defect, unspecified; K72.10 Chronic hepatic failure without coma; E72.20 Disorder of urea cycle metabolism, unspecified; E88.09 Other disorders of plasma-protein metabolism, not elsewhere classified; K76.6 Portal hypertension; L03.115 Cellulitis of right lower limb; D69.59 Other secondary thrombocytopenia; L03.116 Cellulitis of left lower limb; F10.139 Alcohol abuse with withdrawal, unspecified; Z20.822 Contact with and (suspected) exposure to COVID-19; Y90.0 Blood alcohol level of less than 20 mg/100 ml; E83.42 Hypomagnesemia; D50.9 Iron deficiency anemia, unspecified; S40.022A Contusion of left upper arm, initial encounter; X58.XXXA Exposure to other specified factors, initial encounter; Y92.9 Unspecified place or not applicable; M79.5 Residual foreign body in soft tissue; K72.00 Acute and subacute hepatic failure without coma; E87.6 Hypokalemia
CPT/HCPCS: 36415; 71045-TC; 73060-TC; 73502; 73552; 76700-TC; 80048-TC; 80053-TC; 80076-TC; 82140-TC; 82272-TC; 82607-TC; 82728-TC; 82784; 83540-TC; 83735-TC; 83880; 84100-TC; 84155; 84165; 84443-TC; 84484-TC; 85025-TC; 85385-TC; 85396; 85610-TC; 85730-TC; 86140-TC; 86225; 86235; 86334; 86431-TC; 86706; 86803; 86850-TC; 87081-TC; 87340; 93970-TC; 93971-TC; 97112-TC; 97116-TC; 97530-TC; A4223; C9113; C9803; G0378; G0480; J1885; J2060; J2916; J3430; J7030; J7050; P9012; P9016; P9034